=== PATIENT | male | born 1955 | race Caucasian/White ===

== ENCOUNTER 2020-08-20 10:32 | Outpatient (CLI) | payer MEDICARE, SELFPAY ==
--- NOTE | ~2020-08-20 | CT_ITS ---
EXAMINATION: CT lung screening DATE: 08/20/2020 10:48 INDICATION: Personal history of tobacco dependence, prior smoker with 37 pack year history TECHNIQUE: Computed tomography (CT) of the chest was performed without intravenous contrast. The dose -length product (DLP) was 174.21 mGy-cm. Automated exposure control and iterative reconstruction tech Meezque were employed. COMPARISON: None FINDINGS: There is moderate emphysema. No suspicious pulmonary nodules are identified. The lungs are free of acute opacities. There is no pleural effusion or pneumothorax. There is calcified coronary ar julius atherosclerosis. The heart size is normal. There are no pathologically enlarged thoracic lymph n odes. Calcified pulmonary nodules and calcified mediastinal lymph nodes are consistent with old granu lomatous disease. IMPRESSION: 1. Lung-RADS category 1: Negative. Continue annual screening with noncontrast low-dose chest CT in 12 months. Reviewed, dictated and finalized at location A. IMPRESSION: 1. Lung-RADS category 1: Negative. Continue annual screening with noncontrast l ow-dose chest CT in 12 months.
== END 2020-08-20 10:33 | disposition home or self-care (01) ==
LOC: CHSIMG 10:35
PROVIDERS: PCP Internal Medicine; Visit Provider Internal Medicine
DX: Z12.2 Encounter for screening for malignant neoplasm of respiratory organs (principal); Z87.891 Personal history of nicotine dependence
CPT/HCPCS: 71271

== ENCOUNTER 2021-10-17 09:20 | Outpatient (CLI) | payer MEDICARE, SELFPAY ==
--- NOTE | ~2021-10-17 | CT_ITS ---
EXAMINATION: CT lung screening DATE: 10/17/2021 09:47 INDICATION: HX OF NICOTINE DEPENDENCE, no complaints, former smkr TECHNIQUE: Computed tomography (CT) of the chest was performed without intravenous contrast. Addition al 3D reconstructions utilizing coronal maximum intensity projection (MIP) were performed. Automated exposure control and iterative reconstruction technique were employed. The dose-length product was 21 8.14 mGy-cm. COMPARISON: 08/20/2020 FINDINGS: Mild emphysema. Small calcified nodule consistent with old granulomatous disease at the junction of t he right middle and upper lobes which are without intervening discernible minor fissure. No other benjamin picious pulmonary nodules, pneumonia, pulmonary edema or other pulmonary infiltrates. No pleural effu marla or pneumothorax. Heart size normal. Atherosclerotic coronary artery calcification. No pericardia l effusion. Calcified right hilar lymph node consistent with old granulomatous disease. No pathologic ally enlarged thoracic lymphadenopathy. Visualized upper abdomen is unremarkable. Moderate spondylosi s in the lower cervical through the upper lumbar spine. IMPRESSION: 1. . Lung-RADS category 1: Negative. Continue annual screening with noncontrast low-dose chest CT in 12 months. Reviewed, dictated and finalized at location B.
== END 2021-10-17 09:21 | disposition home or self-care (01) ==
LOC: CHSIMG 09:21
PROVIDERS: PCP Internal Medicine; Visit Provider Internal Medicine
DX: Z12.2 Encounter for screening for malignant neoplasm of respiratory organs (principal); Z87.891 Personal history of nicotine dependence
CPT/HCPCS: 71271

== ENCOUNTER 2022-11-20 07:55 | Outpatient (CLI) | payer MEDICARE, SELFPAY ==
--- NOTE | ~2022-11-20 | CT_ITS ---
EXAMINATION:CT lung screening DATE: 11/20/2022 08:16 INDICATION: Personal history of tobacco dependence. Smoker who quit 13 years ago with 37 pack year hi story. TECHNIQUE: Computed tomography (CT) of the chest was performed without intravenous contrast. Automate d exposure control and iterative reconstruction technique were employed. The dose-length product (DLP ) was 189.07 mGy-cm. COMPARISON: Chest CT 10/17/2021 FINDINGS: There is mild emphysema. There is mild atelectasis bilaterally. There is a 2 mm nodule in l eft upper lobe. A calcified right lung nodule and calcified right hilar and mediastinal lymph nodes a re consistent with old granulomatous disease. No pleural effusion. The heart size is normal. There ar e coronary artery calcifications. No pericardial effusion. There is mild thoracic spondylosis. IMPRESSION: 1. Lung-RADS category 2: Benign appearance or behavior. Continue annual screening with noncontrast lo w-dose chest CT in 12 months. Reviewed, dictated and finalized at location A. IMPRESSION: 1. Lung-RADS category 2: Benign appearance or behavior. Continue annual screeni ng with noncontrast low-dose chest CT in 12 months.
== END 2022-11-20 07:56 | disposition home or self-care (01) ==
LOC: CHSIMG 08:00
PROVIDERS: PCP Internal Medicine; Visit Provider Internal Medicine
DX: Z12.2 Encounter for screening for malignant neoplasm of respiratory organs (principal); Z87.891 Personal history of nicotine dependence
CPT/HCPCS: 71271

== ENCOUNTER 2023-01-21 02:41 | Day surgery (SDC) | payer MEDICARE, SELFPAY ==
[2023-01-12 09:08] VITALS: BMI 27.6
[2023-01-21 09:14] VITALS: BP 146/70; PULSE 54; RESP 18; TEMP 36.3; O2SAT 100
[2023-01-21] MEDS: LACTATED RINGERS 1,000 ML 150 ML IV CONT (09:20)
--- NOTE | 2023-01-21 09:43 | P.PNAN_ITS ---
Anes - Initial Pre Proc Eval Procedure: Operation Date: 01/21/23 10:15 Proposed Procedures p Colonoscopy - Ganga Castanon DO Date/Time: 01/21/23 09:43 Surgeon: Ganga Castanon DO Pre Op Diagnosis: + cologuard Patient Data Age: 67 Gender: M Height: 1.8 m Weight: 89.2 kg Last Vital Signs Temp 97.4 F L 01/21/23 09:14 Pulse 54 L 01/21/23 09:14 Resp 18 01/21/23 09:14 BP 146/70 H 01/21/23 09:14 Pulse Ox 100 01/21/23 09:14 O2 Del Method Room Air 01/21/23 09:14 Allergies Allergy/AdvReac Type Severity Reaction Status Date / Time No Known Allergies Allergy Verified 01/21/23 09:13 Home Medications Medication Instructions Recorded Confirmed Type Adults Multivitamin 1 cap PO DAILY 01/12/23 01/12/23 History pravastatin 20 mg tablet 20 mg PO HS 01/12/23 01/12/23 History Patient hx anesthesia problems: none Family hx anesthesia problems: none Results Review: All pre-operative results and documents have been reviewed as part of the pre- operative evaluation. PMFSH Social History Social History Smoking packs per day: 2 Smoking cigarettes per day: 40.0 Years smoked: 36 Smoking pack-years: 72.00 Smoking status: Former smoker Tobacco type: cigarettes Alcohol intake: current Drinks per week: 12 Alcohol use details: BEER Substance use: never Substance use type: does not use Living arrangements: with family Spiritual care concerns: No Anes - Eval Final PreProcedure Day of Procedure 01/21/23 09:43 Patient weight: normal Heart: regular rate and rhythm Lungs: clear to auscultation Airway: Mallampati scale class II Neurological: alert and oriented Last oral intake: >/= 8 hours ASA classification: II Emergent: no Anesthetic plan: proceed Anesthesia type and monitoring: general GIVS and standard monitoring Results Review: All pre-operative results and documents have been reviewed as part of the pre- operative evaluation. Informed Consent: The patient's anesthetic plan and its attendant risks and benefits were discussed with the patient/family/POA. Questions were solicited and answers provided to the satisfaction of the patient/family/POA.
--- NOTE | 2023-01-21 10:08 | PM.IMHP ---
H&P: HPI History of Present Illness Date/Time: 01/21/23 10:08 Chief Complaint: Positive Cologuard test Narrative: This is a 67-year-old man who presents for his 1st colonoscopy. He has not never had any hematochezia or melena. He denies family history of colon cancer. He did have a Cologuard test which was positive. He denies any other bowel complaints. Review of Systems Review of Systems: All systems reviewed & are unremarkable except as noted in HPI and below Constitutional: Constitutional: Denies chills, Denies fever(s), Denies headache(s) and Denies weight loss Eyes: Eyes: Denies change in vision ENT: Denies dizziness, Denies headache(s), Denies neck mass and Denies throat swelling Cardiovascular: Cardiovascular: Denies chest pain, Denies lightheadedness and Denies dyspnea Respiratory: Respiratory: Denies cough, Denies dyspnea and Denies wheezing Gastrointestinal: Gastrointestinal: Denies abdominal pain, Denies change in bowel habits, Denies nausea and Denies vomiting Genitourinary: Genitourinary: Denies hematuria and Denies dysuria Musculoskeletal: Musculoskeletal: Reports as per HPI Integumentary/Breasts: Skin/Breast: Reports as per HPI Neurologic: Denies dizziness and Denies headache(s) Allergic/Immunologic: Allergic/Immunologic: Denies throat swelling and Denies wheezing [facility] Social History Social History Smoking packs per day: 2 Smoking cigarettes per day: 40.0 Years smoked: 36 Smoking pack-years: 72.00 Smoking status: Former smoker Tobacco type: cigarettes Alcohol intake: current Drinks per week: 12 Alcohol use details: BEER Substance use: never Substance use type: does not use Living arrangements: with family Spiritual care concerns: No Meds Home Medications and Allergies Home Medications Medication Instructions Recorded Confirmed Type Adults Multivitamin 1 cap PO DAILY 01/12/23 01/12/23 History pravastatin 20 mg tablet 20 mg PO HS 01/12/23 01/12/23 History Allergies Allergy/AdvReac Type Severity Reaction Status Date / Time No Known Allergies Allergy Verified 01/21/23 09:13 Vital Signs Vital Signs - 24 hr 01/21/23 09:14 Temperature 36.3 C L Pulse Rate 54 L Respiratory Rate 18 Blood Pressure 146/70 H Pulse Oximetry 100 Oxygen Delivery Room Air Exam Const: General: no acute distress and alert Orientation/consciousness: patient oriented x3 HENMT: Head: normocephalic and atraumatic Ears: hearing grossly normal bilaterally Face/Nose/Sinus: Normal nares present Mouth: Yes Normal oral and palatal mucosa present Eyes: Periorbital: periorbital findings normal Sclera: sclerae normal EOM: EOMs intact bilaterally Neck: Neck: normal visual inspection, no lymphadenopathy and trachea midline Chest: Chest palpation & inspection: normal inspection of the chest Resp: Effort & Inspection: normal respiratory effort Auscultation: clear to auscultation bilaterally Cardio: Jugular venous distension: no JVD Rate: regular rate Rhythm: regular rhythm Heart sounds: S1 normal heart sound present and S2 normal heart sound present Peripheral pulses: Peripheral pulses 2+ throughout GI: Inspection: normal to inspection GI Palp: Yes Soft to palpation, No Tenderness to palpation present (GI), No Guarding due to palpation present (GI) and No Rebound tenderness present Percussion: Yes normal to percussion Auscultation: normal bowel sounds : General: Yes no CVA tenderness Back/Spine/Pelvis: Back: no CVA tenderness Neuro: General: patient oriented x3, no focal motor deficits and CN's II-XI intact bilaterally Cognition (Neuro): normal cognition Speech: normal speech Motor exam (neuro): 5/5 motor strength present throughout Extrem: General: capillary refill normal and no clubbing, cyanosis or edema Assessment and Plan Assessment and plan (1) Positive colorectal cancer screening using Cologuard test: Code(s): R19.5 - Other fecal abno
[2023-01-21 10:51] VITALS: BP 106/73; PULSE 55; RESP 18; O2SAT 100
[2023-01-21 11:01] VITALS: BP 125/85; PULSE 50; RESP 19; O2SAT 100
[2023-01-21 11:11] VITALS: BP 132/79; PULSE 52; RESP 18; O2SAT 100
== END 2023-01-21 11:25 | disposition home or self-care (01) ==
PROVIDERS: PCP Internal Medicine; Visit Provider Surgery
PROC: 0DJD8ZZ Inspection of Lower Intestinal Tract, Via Natural or Artificial Opening Endoscopic (ICD-10-PCS; CPT 45378; principal; 2023-01-21 10:15)
DX: R19.5 Other fecal abnormalities (principal); D12.0 Benign neoplasm of cecum; D12.4 Benign neoplasm of descending colon; K63.5 Polyp of colon; K62.1 Rectal polyp; K57.30 Diverticulosis of large intestine without perforation or abscess without bleeding; K64.8 Other hemorrhoids; Z87.891 Personal history of nicotine dependence
CPT/HCPCS: 45385; 45380; 88305; J2704; J7120

== ENCOUNTER 2023-12-20 07:18 | Outpatient (CLI) | payer MEDICARE, SELFPAY ==
--- NOTE | ~2023-12-20 | CT_ITS ---
EXAMINATION:CT lung screening DATE: 12/20/2023 07:37 INDICATION: Personal history of tobacco dependence. 37 pack year history. TECHNIQUE: Computed tomography (CT) of the chest was performed without intravenous contrast. Automate d exposure control and iterative reconstruction technique were employed. The dose-length product (DLP ) was 159.10 mGy-cm. COMPARISON: Chest CT 11/20/2022 FINDINGS: There is mild emphysema. There is mild atelectasis on the right. A calcified right lung nod ule and calcified right hilar lymph nodes are consistent with old granulomatous disease. There is a 3 mm nodule in right upper lobe. There is a 2 mm nodule in left upper lobe. No pleural effusion. The h eart size is normal. There are coronary artery calcifications. No pericardial effusion. There is mild thoracic spondylosis. IMPRESSION: 1. Lung-RADS category 2: Benign appearance or behavior. Continue annual screening with noncontrast lo w-dose chest CT in 12 months. Reviewed, dictated and finalized at location A. IMPRESSION: 1. Lung-RADS category 2: Benign appearance or behavior. Continue annual screeni ng with noncontrast low-dose chest CT in 12 months.
== END 2023-12-20 07:19 | disposition home or self-care (01) ==
LOC: CHSIMG 07:20
PROVIDERS: PCP Internal Medicine; Visit Provider Internal Medicine
DX: Z12.2 Encounter for screening for malignant neoplasm of respiratory organs (principal); Z87.891 Personal history of nicotine dependence
CPT/HCPCS: 71271

== ENCOUNTER 2025-02-13 09:27 | Outpatient (CLI) | payer MEDICARE, SELFPAY ==
--- NOTE | ~2025-02-13 | CT_ITS ---
EXAMINATION:CT lung screening DATE: 02/13/2025 09:40 INDICATION: Screening TECHNIQUE: Computed tomography (CT) of the chest was performed without intravenous contrast. The dose-length product (DLP) was 130.91 mGy-cm. COMPARISON: December 20, 2023 FINDINGS: No suspicious lung nodules or masses. No gross acute intrathoracic process. Scattered small calcified granulomas nodules noted. Heart and great vessels normal in size. Moderately extensive coronary artery calcifications noted. Degenerative changes throughout the thoracic spine. No acute process seen in the bony thorax, extrathoracic soft tissues or visualized portions of the upper abdomen. IMPRESSION: 1. No suspicious lung nodule or mass. LUNG RADS 2. Recommend correlation with follow-up screening chest CT in 12 months. 2. Chronic appearing findings as above. Reviewed, dictated and finalized at location A. CT SUPPORT SPECIALIST
== END 2025-02-13 09:28 | disposition home or self-care (01) ==
PROVIDERS: PCP Internal Medicine; Visit Provider Internal Medicine
DX: Z12.2 Encounter for screening for malignant neoplasm of respiratory organs (principal); Z87.891 Personal history of nicotine dependence
CPT/HCPCS: 71271

== ENCOUNTER 2025-03-05 07:42 | Outpatient (CLI) | payer MEDICARE, SELFPAY ==
--- NOTE | 2025-03-05 07:52 | EST_ITS ---
Patient Info Name: Jamin Parks Age: 69 years : 1955 Gender: Male Ht: 68 in Wt: 215 lbs BSA: 2.20 m2 HR: 53 bpm BP: 123 / 71 mmHg Heart Rhythm: Bradycardia Technical Quality: Good Exam Date: 03/05/2025 7:52 AM Patient Status: O Admit Date: 03/05/2025 Exam Type: CA stress test treadmill w NM A treadmill exercise stress test was performed. Staff Referring Physician: Selina Diane MD Attending Provider: Selina Diane MD Summary 1. 1. Negative Johnny exercise stress test for ischemic ST changes by ECG criteria. 2. 2. Good functional capacity, achieving 10 METs of workload. 3. 3. Hypertensive response to exercise. 4. 4. Appropriate HR response to exercise. 5. 5. Appropriate HR recovery at 1 minute post exercise. 6. 6. Nuclear scan to follow and will be reported separately. Please correlate with it. History/Risk Factors Dyslipidemia: Yes Protocol: Johnny Stress ECG Details Stage: REST Duration (min): 1 min : 24 sec Speed (mph): 0.0 Grade (%): 0 HR (bpm): 52 SBP (mmHg): 123 DBP (mmHg): 71 METS: --- Stage: REST Duration (min): 4 min : 59 sec Speed (mph): 0.0 Grade (%): 0 HR (bpm): 65 SBP (mmHg): 123 DBP (mmHg): 71 METS: --- Stage: STAGE 1 Duration (min): 1 min : 0 sec Speed (mph): 1.7 Grade (%): 10 HR (bpm): 84 SBP (mmHg): 123 DBP (mmHg): 71 METS: --- Stage: STAGE 1 Duration (min): 2 min : 0 sec Speed (mph): 1.7 Grade (%): 10 HR (bpm): 96 SBP (mmHg): 123 DBP (mmHg): 71 METS: --- Stage: STAGE 1 Duration (min): 3 min : 0 sec Speed (mph): 1.7 Grade (%): 10 HR (bpm): 100 SBP (mmHg): 154 DBP (mmHg): 75 METS: --- Stage: STAGE 2 Duration (min): 1 min : 0 sec Speed (mph): 2.5 Grade (%): 12 HR (bpm): 107 SBP (mmHg): 154 DBP (mmHg): 75 METS: --- Stage: STAGE 2 Duration (min): 2 min : 0 sec Speed (mph): 2.5 Grade (%): 12 HR (bpm): 111 SBP (mmHg): 154 DBP (mmHg): 75 METS: --- Stage: STAGE 2 Duration (min): 3 min : 0 sec Speed (mph): 2.5 Grade (%): 12 HR (bpm): 118 SBP (mmHg): 185 DBP (mmHg): 71 METS: --- Stage: STAGE 3 Duration (min): 1 min : 0 sec Speed (mph): 3.4 Grade (%): 14 HR (bpm): 129 SBP (mmHg): 185 DBP (mmHg): 71 METS: --- Stage: STAGE 3 Duration (min): 2 min : 0 sec Speed (mph): 3.4 Grade (%): 14 HR (bpm): 137 SBP (mmHg): 185 DBP (mmHg): 71 METS: --- Stage: STAGE 3 Duration (min): 2 min : 17 sec Speed (mph): 3.4 Grade (%): 14 HR (bpm): 142 SBP (mmHg): 185 DBP (mmHg): 71 METS: --- Stage: RECOVERY Duration (min): 0 min : 42 sec Speed (mph): 0.0 Grade (%): 0 HR (bpm): 133 SBP (mmHg): 193 DBP (mmHg): 85 METS: --- Stage: RECOVERY Duration (min): 1 min : 42 sec Speed (mph): 0.0 Grade (%): 0 HR (bpm): 109 SBP (mmHg): 193 DBP (mmHg): 85 METS: --- Stage: RECOVERY Duration (min): 2 min : 42 sec Speed (mph): 0.0 Grade (%): 0 HR (bpm): 96 SBP (mmHg): 216 DBP (mmHg): 80 METS: --- Stage: RECOVERY Duration (min): 3 min : 42 sec Speed (mph): 0.0 Grade (%): 0 HR (bpm): 83 SBP (mmHg): 216 DBP (mmHg): 80 METS: --- Stage: RECOVERY Duration (min): 4 min : 42 sec Speed (mph): 0.0 Grade (%): 0 HR (bpm): 85 SBP (mmHg): 187 DBP (mmHg): 76 METS: --- Stage: RECOVERY Duration (min): 5 min : 42 sec Speed (mph): 0.0 Grade (%): 0 HR (bpm): 80 SBP (mmHg): 187 DBP (mmHg): 76 METS: --- Stage: RECOVERY Duration (min): 6 min : 42 sec Speed (mph): 0.0 Grade (%): 0 HR (bpm): 84 SBP (mmHg): 144 DBP (mmHg): 78 METS: --- Stage: RECOVERY Duration (min): 7 min : 14 sec Speed (mph): 0.0 Grade (%): 0 HR (bpm): 84 SBP (mmHg): 144 DBP (mmHg): 78 METS: --- Rest HR: 65 bpm Peak HR: 141 bpm Rest Sys BP: 123 mmHg Peak Sys BP: 216 mmHg Max Pred HR: 149 bpm % Max Pred HR: 95 % Target HR: 127 bpm Max RPP: 30,456 bpm*mmHg Saavedra Score: 2 Target HR Summary: Test terminated after reaching target heart rate (85% max predicted) BP Response: Patient exhibited a hypertensive response with stress Termination Reason: Fatigue Cardiac Symptoms: None Max ST Seg Deviation: -1.20 mm Total Time: 8 min : 17 sec Rest Jorgensen BP: 71 mmHg Peak Jorgensen BP: 80 mmHg Angina Score: None Total METS: 10.3 Resting ECG Sinus bradycardia. Occasional PVCs. Stress ECG No abnormal ST/T wave changes with exercise. Arrhythmias Occasional PVCs including some couplets. Report Signatures
--- NOTE | 2025-03-05 13:03 | WPDCARIOSTRE ---
Nuclear Stress Test INDICATIONS Indications: CAD PROCEDURE Procedure Performed: Myocardial Perf Spect-Multi Procedure: Patient exercised on a standard Johnny protocol and at peak exercise was injected with 31.3 mCi of cardiolyte. Multiple tomographic images were obtained. These are of good quality. There is a small size, mild inferior perfusion defect with stress imaging. A separate resting images were obtained after patient was injected with 10.1 mCi of cardiolyte. Multiple tomographic images were obtained. These are of good quality. There is a small size, mild inferior perfusion defect with rest imaging. CONCLUSION Conclusion: 1. Myocardial perfusion imaging demonstrating a fixed inferior perfusion defect suggestive of diaphragmatic attenuation artifact. 2. No evidence of reversible ischemia. 3. Left ventriculogram demonstrates normal measured ejection fraction of 56% with no wall motion abnormalities. 4. TID score 0.89 is not elevated.
== END 2025-03-05 07:43 | disposition home or self-care (01) ==
PROVIDERS: PCP Internal Medicine; Visit Provider Internal Medicine
DX: I25.10 Atherosclerotic heart disease of native coronary artery without angina pectoris (principal)
CPT/HCPCS: 78452; 93017; A9502